=== PATIENT | male | born 1955 | race Caucasian/White ===

== ENCOUNTER 2018-05-28 07:49 | Day surgery (SDC) | payer OTHER ==
[~2018-05-28 07:49] MED LIST: ACET-2869 PO; ATA25 PO; ATRMDI IH; BUDE180P IH; IBUP-2218 PO; LORA1TAB7 PO; MONT10TA35 PO; ONDA8ODT2 PO; PRED1TAB2 PO
[2018-05-28] MEDS ORDERED: fentaNYL 0.05 MG/ML VIAL ONE (09:37)
[2018-05-28] MEDS ORDERED: MIDAZOLAM 2 MG/2 ML VIAL ONE (09:37)
[2018-05-28 13:07] LABS: ALBUMIN 3.5 g/dL (3.4-5.0); BILIRUBIN,DIRECT 0.1 mg/dL (0.0-0.3); TOTAL BILIRUBIN 0.4 mg/dL (0.0-1.0)
== END 2018-05-28 11:43 | disposition home or self-care (01) ==
LOC: MDS 07:49 → MMU 07:58 → MDS 11:43
PROVIDERS: ATTEND Internal Medicine Gastroenterology
DX: K21.9 Gastro-esophageal reflux disease without esophagitis (principal); K22.70 Barrett's esophagus without dysplasia; K44.9 Diaphragmatic hernia without obstruction or gangrene; J44.9 Chronic obstructive pulmonary disease, unspecified; B19.20 Unspecified viral hepatitis C without hepatic coma; Z87.891 Personal history of nicotine dependence; Z79.899 Other long term (current) drug therapy; Z68.24 Body mass index [BMI] 24.0-24.9, adult
CPT/HCPCS: 36415; 43239; 80076; 86677; J2250; J7120; J3010

== ENCOUNTER 2018-09-18 07:33 | Day surgery (SDC) | payer OTHER ==
[~2018-09-18] VITALS: Ht 175.3 cm; Wt 83.9 kg
[~2018-09-18 07:33] MED LIST changes: -ACET-2869 PO; +HYDR-5122 PO
[2018-09-18] MEDS ORDERED: MIDAZOLAM 2 MG/2 ML VIAL ONE (09:14)
[2018-09-18] MEDS ORDERED: fentaNYL 0.05 MG/ML VIAL ONE (09:14)
[2018-09-18] MEDS ORDERED: MIDAZOLAM 2 MG/2 ML VIAL IVP ONE (09:35)
== END 2018-09-18 10:30 | disposition home or self-care (01) ==
LOC: MMU 07:33 → MDS 07:33
PROVIDERS: ATTEND Internal Medicine Gastroenterology
DX: K22.70 Barrett's esophagus without dysplasia (principal); K44.9 Diaphragmatic hernia without obstruction or gangrene; K31.89 Other diseases of stomach and duodenum; J44.9 Chronic obstructive pulmonary disease, unspecified; F17.210 Nicotine dependence, cigarettes, uncomplicated; Z98.890 Other specified postprocedural states; Z79.899 Other long term (current) drug therapy; Z79.1 Long term (current) use of non-steroidal anti-inflammatories (NSAID)
CPT/HCPCS: 36415; 43239; 86677; J2250; 88305; 88313; J3010

== ENCOUNTER 2022-03-22 09:37 | Day surgery (SDC) | payer OTHER ==
[~2022-03-22] VITALS: Ht 175.3 cm; Wt 79.8 kg
[~2022-03-22 09:37] MED LIST changes: +ONDA-190 PO; -ONDA8ODT2 PO
[2022-03-22] MEDS ORDERED: fentaNYL citrate 0.05 MG/ML VIAL ONE (12:24)
[2022-03-22] MEDS ORDERED: MIDAZOLAM 5 MG/5 ML VIAL ONE (12:24)
== END 2022-03-22 13:30 | disposition home or self-care (01) ==
LOC: MDS 09:37 → MMU 11:26 → MDS 13:30
PROVIDERS: ATTEND Internal Medicine Gastroenterology
DX: K21.9 Gastro-esophageal reflux disease without esophagitis (principal); K44.9 Diaphragmatic hernia without obstruction or gangrene; K22.70 Barrett's esophagus without dysplasia; B18.2 Chronic viral hepatitis C; J44.9 Chronic obstructive pulmonary disease, unspecified; Z20.822 Contact with and (suspected) exposure to COVID-19; Z79.899 Other long term (current) drug therapy
CPT/HCPCS: 43235; 87426; J2250; J3010